=== PATIENT | female | born 1950 | race Caucasian/White ===

== ENCOUNTER → 2016-10-28 | Outpatient (CLI) | payer OTHER ==
[~2016-10-28] MED LIST: ATOR20TA9 PO; CART1TAB4 PO; CHOL2000 PO; CHOL200024 PO; ESOM20CA PO; ESTR-8 TD; GLUC-149 PO; HERB LAX; HERBLAX PO; MULT-658 PO; MULT-82 PO; NIFE60TA15 PO; VALS1TAB22 PO; VALS1TAB24 PO
== END | disposition home or self-care (01) ==
LOC: ROC 15:10
PROVIDERS: ATTEND Radiology Radiation Oncology
DX: C32.0 Malignant neoplasm of glottis (principal); Z92.3 Personal history of irradiation
CPT/HCPCS: 99212; G0463

== ENCOUNTER 2016-11-24 09:15 | Observation (INO) | payer OTHER ==
[~2016-11-24] VITALS: Ht 160 cm; Wt 79.4 kg
[2016-11-24] MEDS ORDERED: NITROGLYCERIN SINGLE TAB 0.4 MG SL PRN (10:00)
[2016-11-24] MEDS ORDERED: ASPIRIN 81 MG TABLET CHEW PO ONE (10:00)
[2016-11-24] MEDS ORDERED: SODIUM CHLORIDE FLUSH 10ML SYR IVF ONE (10:00)
[2016-11-24 10:14] LABS: BLOOD UREA NITROGEN 17 mg/dL (7-18)
[2016-11-24] MEDS ORDERED: ASPIRIN 81 MG TABLET CHEW ONE (10:15)
[2016-11-24] MEDS ORDERED: NITROGLYCERIN SINGLE TAB 0.4 MG SL ONE (10:16)
[2016-11-24] MEDS ORDERED: FURO-93 PO (11:00)
[2016-11-24] MEDS ORDERED: SODIUM CHLORIDE FLUSH 10ML SYR IVF PRN (11:00)
[2016-11-24] MEDS ORDERED: ESTRADIOL TD SCH (11:30)
[2016-11-24] MEDS ORDERED: NITROGLYCERIN 0.4 MG/SPRAY SL PRN (11:30)
[2016-11-24] MEDS ORDERED: NITROGLYCERIN 0.4 MG BOTTLE (25 TABS) SL PRN (11:30)
[2016-11-24] MEDS ORDERED: morphine SULFATE 10 MG/ML, 1ML IV PRN (11:30)
[2016-11-24 11:58] VITALS: BP 129/73
[2016-11-24] MEDS: ENOXAPARIN 40 MG/0.4 ML SQ SCH (13:19)
[2016-11-24] MEDS ORDERED: ACETAMINOPHEN 325 MG TABLET PO PRN (16:00)
[2016-11-24] MEDS: ONDANSETRON 2MG/ML, 2ML IVP PRN (16:17)
[2016-11-24 16:25] LABS: IS PT STATUS REG ER OR PRE ER? NO
[2016-11-24] MEDS: SODIUM CHLORIDE FLUSH 10ML SYR IVF SCH (20:23)
[2016-11-24] MEDS: CHOLECALCIFEROL 1,000 UNIT TABLET PO SCH (20:24)
[2016-11-24 20:30] VITALS: BP 116/68
[2016-11-24] MEDS ORDERED: ATORVASTATIN 20 MG TABLET PO SCH (21:00)
[2016-11-24 23:17] LABS: IS PT STATUS REG ER OR PRE ER? NO
[2016-11-25 01:11] VITALS: BP 107/65
[2016-11-25] MEDS: ONDANSETRON 2MG/ML, 2ML IVP PRN (05:00)
[2016-11-25 05:44] LABS: BLOOD UREA NITROGEN 20 mg/dL (7-18)
[2016-11-25] MEDS ORDERED: ASPIRIN 325 MG TABLET EC PO SCH (06:00)
[2016-11-25] MEDS ORDERED: PANTOPRAZOLE 20MG TABLET PO SCH (07:30)
[2016-11-25 07:38] VITALS: BP 111/68
[2016-11-25] MEDS: CHOLECALCIFEROL 1,000 UNIT TABLET PO SCH (07:50)
[2016-11-25] MEDS: SODIUM CHLORIDE FLUSH 10ML SYR IVF SCH (07:53)
[2016-11-25] MEDS ORDERED: REGADENOSON 0.4 MG/5 ML SYRINGE ONE (08:38)
[2016-11-25] MEDS ORDERED: niFEDipine ER 60 MG TABLET.ER PO SCH (09:00)
[2016-11-25] MEDS ORDERED: VALSARTAN 80 MG TABLET PO SCH (09:00)
[2016-11-25] MEDS ORDERED: MULTIVITAMIN 1 TABLET PO SCH (09:00)
[2016-11-25] MEDS ORDERED: HYDROCHLOROTHIAZIDE 12.5 MG CAPSULE PO SCH (09:00)
[2016-11-25] MEDS ORDERED: TEMPLATE NON-FORMULARY MED. (Cartilage/Collagen/Bor/Hyalur (Move Free Ultra Tablet) 1 TAB) PO SCH (09:00)
[2016-11-25] MEDS: ENOXAPARIN 40 MG/0.4 ML SQ SCH (12:30)
[2016-11-25 13:57] VITALS: BP 124/79
[2016-11-26] MEDS ORDERED: FUROSEMIDE 20 MG TABLET PO SCH (09:00)
== END 2016-11-25 15:45 | disposition home or self-care (01) ==
LOC: ED 10:30 → EDIP 10:32 → ED 11:30 → 5SO 11:54 → DCLOUNGE 11-25 15:28
PROVIDERS: ADMIT Hospitalist; ATTEND Hospitalist
DX: R07.2 Precordial pain (principal); C32.0 Malignant neoplasm of glottis; I10 Essential (primary) hypertension; R13.10 Dysphagia, unspecified; G43.909 Migraine, unspecified, not intractable, without status migrainosus; M19.90 Unspecified osteoarthritis, unspecified site; E78.5 Hyperlipidemia, unspecified; I89.0 Lymphedema, not elsewhere classified; Z92.21 Personal history of antineoplastic chemotherapy; Z92.3 Personal history of irradiation; Z85.21 Personal history of malignant neoplasm of larynx; Z87.891 Personal history of nicotine dependence; Y84.2 Radiological procedure and radiotherapy as the cause of abnormal reaction of the patient, or of later complication, without mention of misadventure at the time of the procedure; Z90.710 Acquired absence of both cervix and uterus; Z90.49 Acquired absence of other specified parts of digestive tract
CPT/HCPCS: 36415; 71010; 78452; 80048; 80061; 82040; 83880; 84484; 85025; 85027; 85610; 85730; 93005; 93017; 96372; 96374; 96376; 99285; A9502; C9898; G0378; J1650; J2405; J2785

== ENCOUNTER → 2017-05-26 | Outpatient (CLI) | payer MEDICARE ==
[~2017-05-26] MED LIST changes: +FURO-93 PO; +MULT-224 PO; -MULT-82 PO
== END | disposition home or self-care (01) ==
LOC: ROC 10:36
PROVIDERS: ATTEND Radiology Radiation Oncology
DX: C32.0 Malignant neoplasm of glottis (principal); Z92.3 Personal history of irradiation
CPT/HCPCS: G0463

== ENCOUNTER 2017-08-09 06:43 | Day surgery (SDC) | payer MEDICARE ==
[2017-08-01 14:02] VITALS: BP 145/83
[~2017-08-09] VITALS: Ht 162.6 cm; Wt 86.2 kg
[~2017-08-09 06:43] MED LIST changes: +ESOM40CA PO
[2017-08-09] MEDS ORDERED: EPINEPHRINE TOPICAL SOLN 1 MG/ML, 30ML ONE (07:05)
[2017-08-09] MEDS ORDERED: FLUORESCEIN OPHTHALMIC 1 MG STRIP ONE (07:05)
[2017-08-09] MEDS ORDERED: OXYMETAZOLINE NASAL SPRAY 0.05%, 15ML ONE (07:05)
[2017-08-09] MEDS ORDERED: MIDAZOLAM 1 MG/ML, 2ML ONE (07:20)
[2017-08-09] MEDS ORDERED: FENTANYL PF 250 MCG/5ML ONE (07:20)
[2017-08-09] MEDS ORDERED: PROPOFOL 50 ML ONE (07:21)
[2017-08-09] MEDS ORDERED: LACTATED RINGERS 1,000 ML IV SCH (07:39)
[2017-08-09 07:45] VITALS: BP 145/83
[2017-08-09] MEDS ORDERED: METOCLOPRAMIDE 5 MG/ML, 2ML ONE (08:14)
[2017-08-09] MEDS ORDERED: CEFAZOLIN 1,000 MG ONE (08:35)
[2017-08-09] MEDS ORDERED: DEXAMETHASONE 4 MG/ML, 1ML ONE ×2 (08:35→08:39)
[2017-08-09] MEDS ORDERED: PROPOFOL 10 MG/ML, 20ML ONE (08:35)
[2017-08-09] MEDS ORDERED: ONDANSETRON 2MG/ML, 2ML ONE ×2 (08:35→09:20)
[2017-08-09] MEDS ORDERED: SUCCINYLCHOLINE 20 MG/ML, 10ML ONE (08:35)
[2017-08-09] MEDS ORDERED: LABETALOL 5MG/ML, 20ML IV PRN (09:00)
[2017-08-09] MEDS ORDERED: ACETAMINOPHEN 325 MG TABLET PO PRN (09:00)
[2017-08-09] MEDS ORDERED: FENTANYL PF 100 MCG/2ML IV PRN (09:00)
[2017-08-09] MEDS ORDERED: DIAZEPAM 5 MG/ML, 2ML IVPush PRN (09:00)
[2017-08-09] MEDS ORDERED: LORazepam 2 MG/ML, 1ML IVPush PRN (09:00)
[2017-08-09] MEDS ORDERED: MIDAZOLAM 1 MG/ML, 2ML IV PRN (09:00)
[2017-08-09] MEDS ORDERED: ALBUTEROL/IPRATROPIUM 2.5MG/0.5MG, 3 ML NPPB PRN (09:00)
[2017-08-09] MEDS ORDERED: PROMETHAZINE 25 MG/ML, 1ML IV PRN (09:00)
[2017-08-09] MEDS ORDERED: HYDROmorphone 1 MG/ML, 1ML IV PRN (09:00)
[2017-08-09] MEDS ORDERED: OXYcodone 5 MG/5 ML ORAL.SOL UDC PO PRN (09:00)
[2017-08-09] MEDS ORDERED: ONDANSETRON 2MG/ML, 2ML IVPush PRN (09:00)
[2017-08-09] MEDS ORDERED: MEPERIDINE/PF 25MG/0.5ML IVPush PRN (09:00)
[2017-08-09] MEDS ORDERED: hydrALAzine 20 MG/ML, 1ML IV PRN (09:00)
[2017-08-09] MEDS ORDERED: LIDOCAINE GEL 2%, 5ML ONE (10:09)
== END 2017-08-09 11:15 ==
LOC: OUT 06:43
PROVIDERS: ATTEND Otolaryngology
DX: J38.3 Other diseases of vocal cords (principal); C32.0 Malignant neoplasm of glottis; I10 Essential (primary) hypertension; E78.5 Hyperlipidemia, unspecified; K21.9 Gastro-esophageal reflux disease without esophagitis; Z88.1 Allergy status to other antibiotic agents; Z88.0 Allergy status to penicillin; Z88.8 Allergy status to other drugs, medicaments and biological substances
CPT/HCPCS: 31526; J0330; J0690; J1100; J2250; J2405; J2704; J2765; J3010; J7120

== ENCOUNTER → 2017-08-25 | Outpatient (CLI) | payer MEDICARE | END | disposition home or self-care (01) | LOC: ROC 13:05 | PROVIDERS: ATTEND Radiology Radiation Oncology | DX: C32.0 Malignant neoplasm of glottis (principal) | CPT/HCPCS: G0463 ==

== ENCOUNTER → 2018-05-08 | Outpatient (CLI) | payer MEDICARE | END | disposition home or self-care (01) | LOC: ROC 08:13 | PROVIDERS: ATTEND Radiology Radiation Oncology | DX: C32.0 Malignant neoplasm of glottis (principal); Z88.2 Allergy status to sulfonamides; Z91.010 Allergy to peanuts | CPT/HCPCS: G0463 ==

== ENCOUNTER 2019-02-07 08:14 | Outpatient (CLI) | payer MEDICARE | END 2019-02-07 23:59 | disposition home or self-care (01) | LOC: ROC 08:14 | PROVIDERS: ATTEND Radiology Radiation Oncology | DX: Z08 Encounter for follow-up examination after completed treatment for malignant neoplasm (principal); Z85.21 Personal history of malignant neoplasm of larynx; Z85.3 Personal history of malignant neoplasm of breast; Z85.118 Personal history of other malignant neoplasm of bronchus and lung; Z78.0 Asymptomatic menopausal state; Z88.2 Allergy status to sulfonamides; Z88.1 Allergy status to other antibiotic agents; Z91.030 Bee allergy status; Z91.010 Allergy to peanuts | CPT/HCPCS: G0463 ==

== ENCOUNTER 2019-06-19 12:32 | Outpatient (CLI) | payer MEDICARE ==
[~2019-06-19 12:32] MED LIST changes: +ATOR20TA37 PO; -ATOR20TA9 PO; -MULT-224 PO; +MULT-642 PO
== END 2019-06-19 23:59 | disposition home or self-care (01) ==
LOC: RAD 12:32
PROVIDERS: ATTEND Specialist
DX: C34.11 Malignant neoplasm of upper lobe, right bronchus or lung (principal); C50.412 Malignant neoplasm of upper-outer quadrant of left female breast; Z87.891 Personal history of nicotine dependence
CPT/HCPCS: 71260

== ENCOUNTER 2019-08-21 14:19 | Outpatient (CLI) | payer MEDICARE ==
[~2019-08-21 14:19] MED LIST changes: +NIFE-6 PO; -NIFE60TA15 PO; -VALS1TAB24 PO; +VALS1TAB25 PO
== END 2019-08-21 23:59 | disposition home or self-care (01) ==
LOC: RAD 14:19
PROVIDERS: ATTEND Radiology Radiation Oncology
DX: M79.602 Pain in left arm (principal); C50.312 Malignant neoplasm of lower-inner quadrant of left female breast

== ENCOUNTER → 2019-08-24 | Outpatient (CLI) | payer MEDICARE ==
[~2019-08-24] MED LIST changes: +OMNIPAQUE 350 MG/ML, 100ML BOTTLE ONE
== END | disposition home or self-care (01) ==
LOC: RAD 10:38
PROVIDERS: ATTEND Radiology Radiation Oncology
DX: C50.312 Malignant neoplasm of lower-inner quadrant of left female breast (principal); M79.602 Pain in left arm
CPT/HCPCS: 70491; Q9967

== ENCOUNTER 2019-09-27 10:33 | Outpatient (CLI) | payer MEDICARE ==
[~2019-09-27 10:33] MED LIST changes: -OMNIPAQUE 350 MG/ML, 100ML BOTTLE ONE
== END 2019-09-27 23:59 | disposition home or self-care (01) ==
LOC: ROC 10:33
PROVIDERS: ATTEND Radiology Radiation Oncology
DX: C50.312 Malignant neoplasm of lower-inner quadrant of left female breast (principal); C34.11 Malignant neoplasm of upper lobe, right bronchus or lung; C32.0 Malignant neoplasm of glottis
CPT/HCPCS: G0463

== ENCOUNTER → 2020-12-12 | Outpatient (CLI) | payer MEDICARE | END | disposition home or self-care (01) | LOC: CFH 15:03 | PROVIDERS: ATTEND Internal Medicine Cardiovascular Disease | DX: I08.3 Combined rheumatic disorders of mitral, aortic and tricuspid valves (principal); R07.9 Chest pain, unspecified | CPT/HCPCS: 93306 ==